=== PATIENT | male | born 1965 | race Hispanic/Latino ===

== ENCOUNTER 2024-10-20 12:34 | Emergency (ER) | payer MEDICAID ==
[~2024-10-20] VITALS: Ht 162.6 cm; Wt 74.4 kg
[~2024-10-20 12:34] MED LIST: AEC81 NG; AMLO10TA4 PO; ATOR40TA69 PO; BUDE10.7 IH; CILO50TA2 PO; CLOP-31 PO; EMPA25TA PO; FURO20TA6 PO; INSU3INS5 SQ; METF-446 PO; METO50TA9 PO; OLME40TA18 PO
--- NOTE | 2024-10-20 12:49 | NUR ---
SELF ADMINISTERED HOME INSULIN-INJECTABLE HOWEVER DID NOT HAVE ANYTHING TO EAT. PER SPOUSE AT BEDSIDE.
--- NOTE | 2024-10-20 12:51 | EKG ---
Formerly [facility] Test Date: 2024-10-20 Test Time: 12:49:26 Pat Name: KATHERYN ROONEY Department: [facility] Room: Gender: M De Alcholizer: [id number] : 1965 Requested By: TERENCE CRUMP Order Number: [id number] Reading MD: Taiwo Fischer Measurements Intervals [place] Rate: 99 P: 46 SC: 156 QRS: 28 QRSD: 131 T: 19 QT: 393 QTc: 504 Interpretive Statements Sinus rhythm Probable left atrial enlargement Right bundle branch block Inferior infarct, old Compared to ECG 09/24/2024 15:26:52 Left anterior fascicular block no longer present Myocardial infarct finding still present Electronically Signed On 10-20-2024 18:40:44 SUPPORT SERVICE TECH by Taiwo Fischer Please click the below link to view image of tracing.
[2024-10-20 13:08] LABS: BASOPHILS # (AUTO) 0.05 K/uL (0.00-0.20); BASOPHILS % (AUTO) 0.3 % (0.0-5.0); EOSINOPHILS # (AUTO) 0.24 K/uL (0.00-0.70); EOSINOPHILS % (AUTO) 1.6 % (0.0-8.0); HEMATOCRIT 33.5 % (42-54); IMMATURE GRANULOCYTE ABSOLUTE 0.08 K/uL (0-1); LYMPHOCYTES # (AUTO) 1.9 K/uL (1.0-4.8); LYMPHOCYTES % (AUTO) 12.5 % (21.0-51.0); MEAN CORPUSCULAR HEMOGLOBIN 30.9 pg (27.0-33.0); MEAN CORPUSCULAR HGB CONC 33.7 g/dL (32.0-36.0); MEAN CORPUSCULAR VOLUME 91.5 fL (79-99); MONOCYTES # (AUTO) 1.2 K/uL (0.1-1.0); MONOCYTES % (AUTO) 7.9 % (3.0-13.0); NEUTROPHILS # (AUTO) 11.7 K/uL (1.8-7.7); NEUTROPHILS % (AUTO) 77.2 % (40.0-77.0); PLATELET COUNT (AUTO) 354 K/uL (130-400); RED BLOOD CELL COUNT(AUTO) 3.66 MIL/uL (4.50-6.20); RED CELL DISTRIBUTION WIDTH 14.2 % (11.0-15.5); WHITE BLOOD COUNT (AUTO) 15.1 K/uL (4.8-10.8)
[2024-10-20 13:15] LABS: POTASSIUM 3.3 mmol/L (3.5-5.1)
[2024-10-20 16:07] LABS: APPEARANCE,URINE CLOUDY (CLEAR); BILIRUBIN,URINE NEGATIVE (NEGATIVE); COLOR,URINE LIGHT-YELLOW (YELLOW); GLUCOSE, URINE (UA) NEGATIVE (NEGATIVE); KETONES,URINE NEGATIVE (NEGATIVE); LEUKOCYTE ESTERASE ,URINE 75 Leu/uL (NEGATIVE); NITRATE,URINE NEGATIVE (NEGATIVE); OCCULT BLOOD,URINE NEGATIVE (NEGATIVE); PH,URINE 5.5 (5.0-8.0); PROTEIN,URINE 200 mg/dL (NEGATIVE); UROBILINOGEN,URINE 0.2 mg/dL (0.2-1.0)
[2024-10-20 16:09] LABS: BACTERIA,URINE MOD /HPF (None Seen); MUCUS,URINE RARE LPF (None Seen); SQUAMOUS EPITHELIAL CELL,UR FEW /HPF (0-2)
[2024-10-20] MEDS: cefTRIAXone 1G VIAL IVPB ONE (16:50)
[2024-10-20] MEDS ORDERED: CEPH500B PO (17:18)
--- NOTE | 2024-10-20 17:18 | ERN ---
General Chief Complaint: Hypoglycemia Stated Complaint: LOW BS 58 Time Seen by MD: 12:41 History of Present Illness Initial Comments 59-year-old male came in for an episode of hypoglycemia. Upon arrival patient states his episode has resolved. Patient otherwise has no concerns. Allergies: Coded Allergies: No Known Drug Allergies (Unverified Allergy, Unknown, 09/18/24) Home Meds Active Scripts Metoprolol Succinate (Toprol Xl) 50 Mg Tab.er.24h, 100 MG PO DAILY, #30 TAB 0 Refills Prov:PAULY STEWART MD 10/01/24 Furosemide (Lasix 20Mg Tab) 20 Mg Tablet, 20 MG PO Q12H, #60 TAB 0 Refills Prov:PAULY STEWART MD 10/01/24 Aspirin (ASPIRIN 81 MG ECTAB) 81 Mg Ectab, 81 MG NG DAILY, #30 TAB.EC 0 Refills Prov:PAULY STEWART MD 10/01/24 Reported Medications Budesonide/Glycopyr/Formoterol (Breztri Aerosphere Inhaler) 160 Mcg-9 Mcg-4.8 Mcg/Actuation Hfa.aer.ad, 2 PUFF IH BID for 30 Days, #10.7 GM 0 Refills 09/19/24 Insuln Asp Prt/Insulin Aspart (Novolog Mix 70-30 Flexpen Syrn) Unknown Strength Insuln.pen, SQ AM PRN for OTHER [SEE ORDER COMMENTS] for 30 Days, #1 SYRINGE 1 Refill 09/19/24 Olmesartan Medoxomil (Olmesartan Medoxomil) 40 Mg Tablet, 40 MG PO DAILY, TAB 09/18/24 Metformin HCl (Metformin HCl) 1,000 Mg Tablet, 1000 MG PO BID, TAB 09/18/24 Amlodipine Besylate (Norvasc) 10 Mg Tablet, 10 MG PO DAILYDINNER, TAB 09/18/24 Clopidogrel Bisulfate (Plavix) 75 Mg Tablet, 75 MG PO DAILY, TAB 09/18/24 Atorvastatin Calcium (LIPITOR) 40 Mg Tablet, 40 MG PO DAILY, TAB 09/18/24 Empagliflozin (Jardiance) 25 Mg Tablet, 25 MG PO DAILY, TAB 09/18/24 Cilostazol (Cilostazol) 50 Mg Tablet, 50 MG PO DAILY, TAB 09/18/24 Past Medical History Past Medical History: CAD, Diabetes-Type II, High Cholesterol Past Surgical History: None ROS Dictation CONSTITUTIONAL: Negative except for HPI HEAD/FACE: Negative except for HPI EENT: Negative except for HPI RESPIRATORY: Negative except for HPI GASTROINTESTINAL/ABDOMINAL: Negative except for HPI GENITOURINARY: Negative except for HPI MUSCULOSKELETAL: Negative except for HPI INTEGUMENTARY: Negative except for HPI NEUROLOGICAL/PSYCH: Negative except for HPI HEMATOLOGIC/LYMPHATIC: Negative except for HPI All Systems Negative, Except as noted above. 13 point review of systems assessed and all negative except for above. Physical Exam Physical Exam Dictation Vital Signs reviewed General Appearance: Alert, oriented x 3, no acute distress, well developed, nourished. Head and Face: non-traumatic. Eyes: PERRL, pink conjunctivas, eyelid no trauma, anterior chamber with arcus senilis. Ears: Pinnas intact and no signs of trauma or erythema ear canals clear and no discharge TM no erythema Nose: No discharge, no bleeding. Oropharynx: Mouth normal, tongue pink, pharynx clear,no erythema, tonsils no exudates, no abscesses noted, mucous membrane moist Neck: Supple, non-tender, no thyromegaly, no masses, no JVD, no bruits Breast:Deferred Chest:No tenderness, no crepitus, no paradoxical movement, no retractions Lungs:Clear, well-ventilated, symmetric, no rales, no wheezing, no rhonchi, no stridor, good breath sounds bilaterally Heart: Regular rate, regular rhythm, no murmur, no gallops Vascular: no peripheral edema, Abdomen: Soft, positive bowel sounds, nondistended, no guarding, nontender, no rebound, no masses no hepatomegaly, no splenomegaly, no Warren's sign, no hernias. Rectal: Deferred Genital: Deferred Neurological: Normal speech, motor function intact, sensory function intact Musculoskeletal: Neck nontender, full range of motion, back nontender, full range of motion, Extremities: nontender, full range of motion Skin: Color pink, dry, no turgor, no rash, no lacerations, no abrasions, no contusions. Lymphatic: Deferred Results Laboratory and Microbiology Lab and Micro Result Laboratory Tests Test 10/20/24 12:41 10/20/24 12:59 10/20/24 13:58 10/20/24 15:29 Whole Blood Glucose 119 MG/DL (70-110) H 125 MG/DL (70-110) H 103 MG/DL (70-110) White Blood Count 15.1 K/uL (4.8-10.8) H Red Blood Count 3.66 MIL/uL (4.50-6.20) L Hemoglobin 11.3 g/dL (14.0-18.0) L Hematocrit 33.5 % (42-54) L Mean Corpuscular Volume 91.5 fL (79-99) Mean Corpuscular Hemoglobin 30.9 pg (27.0-33.0) Mean Corpuscular Hemoglobin Concent 33.7 g/dL (32.0-36.0) Red Cell Distribution Width 14.2 % (11.0-15.5) Platelet Count 354 K/uL (130-400) Mean Platelet Volume 9.3 fL (7.5-10.5) Immature Granulocyte % (Auto) 0.5 % (0-1) Neutrophils (%) (Auto) 77.2 % (40.0-77.0) H Lymphocytes (%) (Auto) 12.5 % (21.0-51.0) L Monocytes (%) (Auto) 7.9 % (3.0-13.0) Eosinophils (%) (Auto) 1.6 % (0.0-8.0) Basophils (%) (Auto) 0.3 % (0.0-5.0) Neutrophils # (Auto) 11.7 K/uL (1.8-7.7) H Lymphocytes # (Auto) 1.9 K/uL (1.0-4.8) Monocytes # (Auto) 1.2 K/uL (0.1-1.0) H Eosinophils # (Auto) 0.24 K/uL (0.00-0.70) Basophils # (Auto) 0.05 K/uL (0.00-0.20) Absolute Immature Granulocyte (auto 0.08 K/uL (0-1) Nucleated Red Blood Cells 0.0 % (0.0-0.19) Sodium Level 145 mmol/L (136-145) Potassium Level 3.3 mmol/L (3.5-5.1) L Chloride Level 106 mmol/L (101-111) Carbon Dioxide Level 26 mmol/L (21-32) Blood Urea Nitrogen 11 mg/dL (7-18) Creatinine 1.0 mg/dL (0.5-1.3) Glomerular Filtration Rate Calc 86 mL/min (>90) Random Glucose 118 mg/dL (70-105) H Total Calcium 9.0 mg/dL (8.5-10.1) Troponin I High Sensitivity 38 ng/L (4-75) Test 10/20/24 15:52 Urine Color LIGHT-YELLOW (YELLOW) Urine Appearance CLOUDY (CLEAR) H Urine pH 5.5 (5.0-8.0) Urine Specific [place] 1.015 (1.001-1.031) Urine Protein 200 mg/dL (NEGATIVE) H Urine Glucose (UA) NEGATIVE mg/dL (NEGATIVE) Urine Ketones NEGATIVE mg/dL (NEGATIVE) Urine Occult Blood NEGATIVE (NEGATIVE) Urine Nitrate NEGATIVE (NEGATIVE) Urine Bilirubin NEGATIVE mg/dL (NEGATIVE) Urine Urobilinogen 0.2 mg/dL (0.2-1.0) Urine Leukocyte Esterase 75 Anil/uL (NEGATIVE) H Urine RBC 2-5 /HPF (0-1) H Urine WBC 6-10 /HPF (0-1) H Urine Squamous Epithelial Cells FEW /HPF (0-2) Urine Bacteria MOD /HPF (None Seen) Urine Hyaline Casts 2-5 /LPF (0-1 /LPF) H MDM MDM: Differential diagnosis: There are no social concerns with this patient. Prescription drug management Prescriptions will include: Medical management and examination interpretation discussions were had by me with other qualified healthcare professionals as indicated for the patient's care. ED Course Orders Procedure Category Date Status Time Basic Metabolic Panel LAB 10/20/24 Complete 12:41 Troponin I High LAB 10/20/24 Complete Sensitivity 12:41 Urinalysis LAB 10/20/24 Complete W/Microscopic 12:41 12 Lead Ekg Tracing- EKG 10/20/24 Complete Technical 12:41 Cbc With Differential LAB 10/20/24 Complete 12:41 Heart Healthy Diet DIET 10/20/24 Transmitted Lunch Culture Urine MICHELLE 10/20/24 In Process 16:07 Ceftriaxone 1g Vial PHA 10/20/24 Complete (Rocephine 1g Inj) 17:00 Current Medications Medications (Trade) Dose Ordered Sig/Janeth Route PRN Reason Start Time Stop Time Status Last Admin Dose Admin Ceftriaxone Sodium (ROCEphine 1G INJ) 1 gm ONCE ONCE IVPB 10/20/24 17:00 10/20/24 17:01 DC 10/20/24 16:50 Vital Signs Date Time Temp Pulse Resp B/P (MAP) Pulse Ox O2 Delivery O2 Flow Rate FiO2 10/20/24 16:10 103 18 136/61 100 Room Air* 0 21 10/20/24 14:42 105 16 132/63 98 Room Air* 0 21 10/20/24 12:52 98 16 128/60 96 Room Air* 0 21 DX & DISP Disposition: Discharge Departure Impression: Primary Impression: Hypoglycemia Additional Impression: UTI (urinary tract infection) Condition: Stable Scripts Cephalexin Monohydrate (Keflex) 500 Mg Cap 500 MG PO BID for 7 Days, #14 CAP Prov: TERENCE CRUMP MD 10/20/24 Referrals: DAVID BURDICK MD (PCP) TERENCE CRUMP MD Oct 20, 2024 17:18
[2024-10-20 17:33] VITALS: BP 144/79; PULSE 100; RESP 16; TEMP 98.1; O2SAT 99
== END 2024-10-20 17:34 | disposition home or self-care (01) ==
LOC: EDH 12:34
DX: E11.649 Type 2 diabetes mellitus with hypoglycemia without coma (principal); N39.0 Urinary tract infection, site not specified; E78.00 Pure hypercholesterolemia, unspecified; I25.10 Atherosclerotic heart disease of native coronary artery without angina pectoris; Z79.02 Long term (current) use of antithrombotics/antiplatelets; Z79.82 Long term (current) use of aspirin; Z79.84 Long term (current) use of oral hypoglycemic drugs; Z79.899 Other long term (current) drug therapy
CPT/HCPCS: 99284; 96374; 84484; 80048; 85025; 87086 ×2; 87186; 82948 ×3; 81001; 36415; 93005; J0696

== ENCOUNTER 2024-11-09 22:43 | Inpatient (IN) | payer MEDICAID ==
[~2024-11-09] VITALS: Ht 162.6 cm; Wt 77.5 kg
[~2024-11-09 22:43] MED LIST changes: +CEPH500B PO
--- NOTE | 2024-11-09 22:52 | ERN ---
General Chief Complaint: Shortness of Breath Stated Complaint: SHORTNESS OF BREATH Time Seen by MD: 22:45 History of Present Illness Initial Comments 59M, BIB EMS from home for resp distress x 48 hours. Patient has a history of COPD, he uses Advair twice a day and albuterol nebulizer regularly. He has been doing this for the last couple of days. He reports a sore throat and productive cough without fever. He reports he had increased respiratory distress. He reports some mild pedal edema. No PND or orthopnea. No chest pain. EMS reports patient had an oxygen saturation ranging from 88-90% on room air. He received a DuoNeb by EMS, on arrival here he reports improvement of symptoms and he is satting at 99%. PCP: Beny Burdick Tapping Machine Operator: Albert Tours Captain: Jesus Manuel Khanna Allergies: Coded Allergies: No Known Drug Allergies (Unverified Allergy, Unknown, 09/18/24) Home Meds Active Scripts Cephalexin Monohydrate (Keflex) 500 Mg Cap, 500 MG PO BID for 7 Days, #14 CAP Prov:TERENCE CRUMP MD 10/20/24 Metoprolol Succinate (Toprol Xl) 50 Mg Tab.er.24h, 100 MG PO DAILY, #30 TAB 0 Refills Prov:PAULY STEWART MD 10/01/24 Furosemide (Lasix 20Mg Tab) 20 Mg Tablet, 20 MG PO Q12H, #60 TAB 0 Refills Prov:PAULY STEWART MD 10/01/24 Aspirin (ASPIRIN 81 MG ECTAB) 81 Mg Ectab, 81 MG NG DAILY, #30 TAB.EC 0 Refills Prov:PAULY TSEWART MD 10/01/24 Reported Medications Budesonide/Glycopyr/Formoterol (Breztri Aerosphere Inhaler) 160 Mcg-9 Mcg-4.8 Mcg/Actuation Hfa.aer.ad, 2 PUFF IH BID for 30 Days, #10.7 GM 0 Refills 09/19/24 Insuln Asp Prt/Insulin Aspart (Novolog Mix 70-30 Flexpen Syrn) Unknown Strength Insuln.pen, SQ AM PRN for OTHER [SEE ORDER COMMENTS] for 30 Days, #1 SYRINGE 1 Refill 09/19/24 Olmesartan Medoxomil (Olmesartan Medoxomil) 40 Mg Tablet, 40 MG PO DAILY, TAB 09/18/24 Metformin HCl (Metformin HCl) 1,000 Mg Tablet, 1000 MG PO BID, TAB 09/18/24 Amlodipine Besylate (Norvasc) 10 Mg Tablet, 10 MG PO DAILYDINNER, TAB 09/18/24 Clopidogrel Bisulfate (Plavix) 75 Mg Tablet, 75 MG PO DAILY, TAB 09/18/24 Atorvastatin Calcium (LIPITOR) 40 Mg Tablet, 40 MG PO DAILY, TAB 09/18/24 Empagliflozin (Jardiance) 25 Mg Tablet, 25 MG PO DAILY, TAB 09/18/24 Cilostazol (Cilostazol) 50 Mg Tablet, 50 MG PO DAILY, TAB 09/18/24 Past Medical History Past Medical History: CAD, COPD, Diabetes-Type II, High Cholesterol, Hy pertension Past Surgical History: None ROS Dictation CONSTITUTIONAL: No chills, no fever, no weakness, no diaphoresis, no malaise. HEAD/FACE: No signs of trauma. EENT: No eye pain, no blurred vision, no tearing, no double vision, no ear pain, no ear discharge, no nose pain, no nasal congestion, no throat pain, no throat swelling, no mouth pain. RESPIRATORY: Productive cough, respiratory distress, wheezing. CARDIOVASCULAR: No chest pain, no edema, no palpitations, no syncope. GASTROINTESTINAL/ABDOMINAL: No abdominal pain, no constipation, no diarrhea, no nausea, no vomiting. GENITOURINARY: No abnormal discharge, no dysuria, no frequent urination, no hematuria. No complaints of pain in the genitals. MUSCULOSKELETAL: No back pain, no gout, no joint pain, no joint swelling, no muscle pain, no muscle stiffness, no neck pain. INTEGUMENTARY: No change in color, no change in hair/nails, no dryness, no lesion, no lumps, no rash. NEUROLOGICAL/PSYCH: No anxiety, not depressed, no emotional problem, no headache, no numbness, no pre-existing deficit, no history of seizures, no tremors, no weakness. HEMATOLOGIC/LYMPHATIC: Not anemic, no history of blood clots, no apparent bleeding, no bruising, glands not swollen. All Systems Negative, Except as Noted. Physical Exam Physical Exam Dictation VITAL SIGNS: Reviewed. GENERAL APPEARANCE: Alert, oriented x3, no acute distress HEAD AND FACE: Non-traumatic. EYES: PERRL, pink conjunctivas, eyelid no trauma, anterior chamber clear. EARS: Pinnas intact and no signs of trauma or erythema. Ear canals clear and no discharge. TMs no erythema. NOSE: No discharge, no bleeding. OROPHARYNX: Mouth normal, teeth no caries, tongue pink. Pharynx clear, no erythema. Tonsils no exudates, no abscesses noted. Mucous membrane moist. NECK: Supple, non-tender, no thyromegaly, no masses, no JVD, no bruits. BREAST: Deferred. CHEST: No tenderness, no crepitus, no paradoxical movement, no retractions. LUNGS: Mild expiratory wheezes, mild rhonchus/rales in the bases bilaterally, 1+ pitting edema to lower legs. ENT exam normal. HEART: Regular rate, regular rhythm, no murmur, no gallops. VASCULAR: No peripheral edema. ABDOMEN: Soft, positive bowel sounds, nondistended, no guarding, nontender, no rebound, no masses no hepatomegaly, no splenomegaly, no Warren's sign, no h ernias. RECTAL: Deferred. GENITAL: Deferred. NEUROLOGICAL: Normal speech, gross motor function intact, gross sensory functi on intact. MUSCULOSKELETAL: Neck nontender, full range of motion, back nontender, full range of motion. EXTREMITIES: Nontender, full range of motion. SKIN: Color pink, dry, no turgor, no rash, no lacerations, no abrasions, no contusions. LYMPHATICS: Deferred. Results Laboratory and Microbiology Lab and Micro Result Laboratory Tests Test 11/09/24 22:54 11/09/24 23:14 11/09/24 23:24 White Blood Count 17.0 K/uL (4.8-10.8) H Red Blood Count 3.86 MIL/uL (4.50-6.20) L Hemoglobin 11.2 g/dL (14.0-18.0) L Hematocrit 34.8 % (42-54) L Mean Corpuscular Volume 90.2 fL (79-99) Mean Corpuscular Hemoglobin 29.0 pg (27.0-33.0) Mean Corpuscular Hemoglobin Concent 32.2 g/dL (32.0-36.0) Red Cell Distribution Width 15.4 % (11.0-15.5) Platelet Count 431 K/uL (130-400) H Mean Platelet Volume 9.2 fL (7.5-10.5) Immature Granulocyte % (Auto) 0.4 % (0-1) Neutrophils (%) (Auto) 78.1 % (40.0-77.0) H Lymphocytes (%) (Auto) 13.2 % (21.0-51.0) L Monocytes (%) (Auto) 6.7 % (3.0-13.0) Eosinophils (%) (Auto) 1.2 % (0.0-8.0) Basophils (%) (Auto) 0.4 % (0.0-5.0) Neutrophils # (Auto) 13.3 K/uL (1.8-7.7) H Lymphocytes # (Auto) 2.3 K/uL (1.0-4.8) Monocytes # (Auto) 1.1 K/uL (0.1-1.0) H Eosinophils # (Auto) 0.20 K/uL (0.00-0.70) Basophils # (Auto) 0.07 K/uL (0.00-0.20) Absolute Immature Granulocyte (auto 0.07 K/uL (0-1) Nucleated Red Blood Cells 0.0 % (0.0-0.19) Sodium Level 142 mmol/L (136-145) Potassium Level 3.0 mmol/L (3.5-5.1) *L Chloride Level 104 mmol/L (101-111) Carbon Dioxide Level 30 mmol/L (21-32) Blood Urea Nitrogen 10 mg/dL (7-18) Creatinine 0.9 mg/dL (0.5-1.3) Glomerular Filtration Rate Calc 97 mL/min (>90) Random Glucose 229 mg/dL (70-105) H Total Calcium 8.8 mg/dL (8.5-10.1) Total Creatine Kinase 201 U/L (21-232) Troponin I High Sensitivity 55.3 ng/L (4-75) B-Type Natriuretic Peptide 1590 pg/mL (0-100) H Influenza Type A Antigen Negative For Type A Influenza Type B Antigen Negative For Type B SARS-CoV-2 Antigen (Rapid) PRESUMPTIVE NEGATIVE Blood Gas Specimen Type Arterial Arterial Blood pH 7.472 (7.350-7.450) Arterial Blood Partial Pressure CO2 33 mmHg (35-48) L Arterial Blood Partial Pressure O2 55.0 mmHg (83.0-108.0) Arterial Blood HCO3 23.7 mmol/L (21.0-28.0) Arterial Blood Oxygen Saturation 90.8 % (94.0-98.0) L Arterial Blood Base Excess 0.8 mmol/L (-2.0-3.0) Blood Gas Temperature 37.0 CELSIUS (35.5-37.0) Blood Gas Vent Mode RA (ROOM AIR) FiO2 21.0 % Blood Gas Specimen Comment RR RN MDM CC: dyspnea x 48 Historian: patient Comorbidities: recent CABG, COPD, oxygen dependency (2L home O2), CAD, HTN Limitations by social determinates of health: none Differential diagnosis: COPD exacerbation, fluid overload, resp failure, PNA, flu, etc. Complicated medical patient with life threatening presentation. CXR (independently interpreted by me): moderate congestion, no effusion or focal infiltrates Labs (independently ordered & intrepreted by me): leukocytosis 17k, L shift, mild anemia Hg 11.2, otherwise stable. Chemistry shows hypokalemia potassium of three, replaced orally in the ER. Glucose mildly elevated to 29. BNP elevated 15 90. I reviewed previous labs in his numbers usually lower. Troponin is stable on CK is stable. ABG: hypoxic PaO2 55%, otherise stable. Patient placed on 4 L of oxygen nasal cannula. EKG (independently interpreted by me): NSR rate 99, normal axis, good RWP, RBBB morphology, no ischemia or STEMI per my independent interpretation. Treatment in ED: 5mg albuterol, 500mcg atrovent, azithromycin, IV lasix. Patient appears to be fluid overloaded based on the BNP, chest x-ray, and clini hannah exam. Patient normally uses 2 L of oxygen at home, now requires 4 L of oxygen. We will admit for fluid overload pulmonary edema. Patient also was wheezing and would benefit from neb treatments. Patient agrees to the admission. Hospitalist consulted for admission. ED Course Orders Procedure Category Date Status Time Arterial Blood Gas RT 11/09/24 Transmitted 22:47 Cbc With Differential LAB 11/09/24 Complete 22:47 B-Type Natriuretic LAB 11/09/24 Complete Peptide 22:47 Cardiac Panel LAB 11/09/24 Complete 22:47 Chest 1vw RAD 11/09/24 Taken 22:47 12 Lead Ekg Tracing- EKG 11/09/24 Logged Technical 22:47 Albuterol 0.083% PHA 11/09/24 Complete 2.5mg/3ml (Proventil 23:00 Ipratropium 0.5 PHA 11/09/24 Complete Mg/2.5 Ml Inh 23:00 Methylprednisolone PHA 11/09/24 Complete Succ 125mg (Solu-Medr 23:00 Basic Metabolic Panel LAB 11/09/24 Complete 22:47 Covid19 (Sars Antigen LAB 11/09/24 Complete Rapid) 22:47 Influenza Type A & B, LAB 11/09/24 Complete Rapid 22:47 Arterial Blood Gas LAB 11/09/24 Complete 23:24 Furosemide 40mg Vial PHA 11/09/24 Complete (Lasix 40mg Vial) 23:30 Azithromycin PHA 11/10/24 Complete (Zithromax) 00:00 Initiate Po ARIANNE 11/10/24 In Process Hypokalemia Protoc 00:02 Potassium Chloride PHA 11/10/24 Logged 20meq/100ml ([place] 00:30 Potassium Chl 10% PHA 11/10/24 Logged Elixir 20meq (Kcl 10% 00:30 Potassium Chloride PHA 11/10/24 Logged 20meq Er (K-Dur/Klor- 00:30 Notify Physician If CPOE 11/10/24 Transmitted There Is 00:02 Notify Md On The Next CPOE 11/10/24 Transmitted 00:02 Notify Md On The CPOE 11/10/24 Transmitted Next(Cont.) 00:02 Current Medications Medications (Trade) Dose Ordered Sig/Janeth Route PRN Reason Start Time Stop Time Status Last Admin Dose Admin Albuterol Sulfate (Proventil 0.083% 2.5mg/3ml) 5 mg ONCE ONCE IH 11/09/24 23:00 11/09/24 23:01 DC 11/09/24 23:19 Azithromycin (Zithromax) 500 mg ONCE ONCE PO 11/10/24 00:00 11/10/24 00:01 DC Furosemide (LASix 40MG VIAL) 40 mg ONCE ONCE IV 11/09/24 23:30 11/09/24 23:31 DC 11/09/24 23:49 Ipratropium [place] (AtrovENT UD) 0.5 mg ONCE ONCE IH 11/09/24 23:00 11/09/24 23:01 DC 11/09/24 23:19 Methylprednisolone Sodium Succinate (Solu-medROL 125MG) 125 mg ONCE ONCE IVP 11/09/24 23:00 11/09/24 23:01 DC 11/09/24 23:13 Potassium Chloride 100 ml @ 100 mls/hr AD PRN IV POTASSIUM PROTOCOL 11/10/24 00:30 12/10/24 00:29 UNV Potassium Chloride (K-Dur/Klor-Con 20meq) 20 meq AD PRN PO POTASSIUM PROTOCOL 11/10/24 00:30 12/10/24 00:29 UNV Potassium Chloride (KCl 10% Elixir 20meq/15ml) 20 meq AD PRN PO POTASSIUM PROTOCOL 11/10/24 00:30 12/10/24 00:29 UNV Vital Signs Date Time Temp Pulse Resp B/P (MAP) Pulse Ox O2 Delivery O2 Flow Rate FiO2 11/09/24 23:27 100 16 11/09/24 22:45 98.4 110 16 152/76 99 Aerosol Face Mask 6.0 DX & DISP Disposition: Inpatient Departure Impression: Primary Impression: Respiratory failure with hypoxia Additional Impressions: Pulmonary edema, Wheezing, Hypokalemia, Hyperglycemia Critical Time: 30 minutes (Critical Care Procedure NoteAuthorized and Performed by: meTotal critical care time: Approximately 36 minutesDue to a high probabi lity of clinically significant, life threatening deterioration, the patient required my highest level of preparedness to intervene emergently and I personally spent this critical care time directly and personally managing the patient. This critical care time included obtaining a history; examining the patient; pulse oximetry; ordering and review of studies; arranging urgent treatment with development of a management plan; evaluation of patient's response to treatment; frequent reassessment; and, discussions with other providers.This critical care time was performed to assess and manage the high probability of imminent, life-threatening deterioration that could result in multi-organ failure. It was exclusive of separately billable procedures and treating other patients and teaching time.Please see MDM section and the rest of the note for further information on patient assessment and treatment.) Condition: Stable Referrals: BENY BURDICK MD (PCP) DARRIAN SAMSON DO Nov 09, 2024 22:52
[2024-11-09 23:05] LABS: BASOPHILS # (AUTO) 0.07 K/uL (0.00-0.20); BASOPHILS % (AUTO) 0.4 % (0.0-5.0); EOSINOPHILS % (AUTO) 1.2 % (0.0-8.0); HEMATOCRIT 34.8 % (42-54); IMMATURE GRANULOCYTE ABSOLUTE 0.07 K/uL (0-1); LYMPHOCYTES # (AUTO) 2.3 K/uL (1.0-4.8); LYMPHOCYTES % (AUTO) 13.2 % (21.0-51.0); MEAN CORPUSCULAR HGB CONC 32.2 g/dL (32.0-36.0); MEAN CORPUSCULAR VOLUME 90.2 fL (79-99); MONOCYTES # (AUTO) 1.1 K/uL (0.1-1.0); MONOCYTES % (AUTO) 6.7 % (3.0-13.0); NEUTROPHILS # (AUTO) 13.3 K/uL (1.8-7.7); NEUTROPHILS % (AUTO) 78.1 % (40.0-77.0); PLATELET COUNT (AUTO) 431 K/uL (130-400); RED BLOOD CELL COUNT(AUTO) 3.86 MIL/uL (4.50-6.20); RED CELL DISTRIBUTION WIDTH 15.4 % (11.0-15.5)
[2024-11-09] MEDS: Solu-medROL 125MG VIAL IVP ONE (23:13)
[2024-11-09] MEDS: ALBUTEROL 0.083% 2.5 MG/3 ML INH IH ONE (23:19)
[2024-11-09] MEDS: IpraTROPium 0.5 MG/2.5 ML INH IH ONE (23:19)
[2024-11-09 23:21] LABS: CREATININE 0.9 mg/dL (0.5-1.3)
[2024-11-09 23:26] LABS: ABG BASE EXCESS 0.8 mmol/L (-2.0-3.0); ABG HCO3 23.7 mmol/L (21.0-28.0); ABG OXYGEN SATURATION 90.8 % (94.0-98.0); ABG PCO2 33 mmHg (35-48); ABG PH 7.472 (7.350-7.450); DEVICE COMMENT RR RN; VENT MODE, BG RA (ROOM AIR)
[2024-11-09 23:27] VITALS: PULSE 100; RESP 16
[2024-11-09 23:37] LABS: B-TYPE NATRIURETIC PEPTIDE 1590 pg/mL (0-100)
[2024-11-09] MEDS: furoSEMIDE 40MG VIAL IV ONE (23:49)
[2024-11-10] VITALS (10 sets, daily range): BP systolic 121–151; BP diastolic 69–81; PULSE 86–102; RESP 18; TEMP 97.9–98.4; O2SAT 97–100
[2024-11-10] LABS: COVID19 (SARS ANTIGEN RAPID) PRESUMPTIVE NEGATIVE (NEGATIVE); INFLUENZA TYPE A Negative For Type A (NEGATIVE); INFLUENZA TYPE B Negative For Type B (NEGATIVE)
[2024-11-10] MEDS: AZITHROMYCIN 250 MG TABLET PO ONE (00:15)
[2024-11-10] MEDS: PoTASSium chloRIDE 20MEQ ER 20 MEQ ERTAB PO PRN (00:15)
[2024-11-10] MEDS: PoTASSium chloRIDE 20MEQ/100ML 100 ML IV PRN (00:16)
--- NOTE | 2024-11-10 00:29 | HP ---
History of Present Illness Reason for Visit: sob History of Present Illness Mr. Rooney is a 59-year-old male that was seen and examined today on 11/10/2024. Patient is a good historian if personal health. Patient's Sheila Rooney is at bedside. Patient states that he came to the emergency department with a chief complaint of shortness a breath. Onset was two days ago. Locations to lungs. Duration is on and off. Character is described as, quotation difficulty catching breath. Symptoms are aggravated with physical activity laying supine. Symptoms are al leviated with rest. Patient reports associated bilateral lower extremity pitting edema because his doctor decreased his water pills. Today in the emergency department ABG shows PO2 55, labs show potassium 3.0, glucose 229 mg/dL, chest x-ray is pending radiology interpretation. Emergency room physician recommended the patient be admitted with a diagnosis of heart failure exacerbation. Past Medical History Patient History: Carcinomas SISTER, Name: SHY (CURRENTLY ON DIALYSIS), Age: 59, Not a twin, Onset:50's - 60 SISTER, Name: WAQAS (JUST DIAGNOSE WITH BREAST CANCER), Age: 45, Not a twin, Onset:40's - 50 Cardiovascular disease SISTER, Name: CHARLES (CABG 2021), Age: 55, Not a twin, Onset:50's - 60 Diabetes mellitus FATHER, Name: ANEL ROONEY, , Age: 58, Cause: Past heart attack, Not a twin, Onset:25's - 30 BROTHER, Name: RALF, Age: 57, Not a twin, Onset:30's - 40 SISTER, Name: SHY (CURRENTLY ON DIALYSIS), Age: 59, Not a twin, Onset:30's - 40 SISTER, Name: CHARLES (CABG 2021), Age: 55, Not a twin, Onset:25's - 30 SISTER, Name: LUKE, Age: 56, Not a twin, Onset:40's - 50 SISTER, Name: WAQAS (JUST DIAGNOSE WITH BREAST CANCER), Age: 45, Not a twin, Onset:40's - 50 Hypertension MOTHER, Name: ZENON ROONEY, Born [birth year]/39, Age: 85, Not a twin, Onset:60 years & older ADDITIONAL PAST MEDICAL HISTORY: [COPD, systolic heart failure with LVEF 30-35% by 2D echo on 09/18/2024, hypertension, hyperlipidemia, diabetes mellitus type 2 ] SOCIAL HISTORY: [Patient has smoked one pack of cigarettes daily since the age of 14 and quit smoking in September of 2024, patient consumes alcohol about once a month usually six beers at a 12 oz each, patient denies drug use. Patient lives with his . Patient is typically independent was ADLs. Patient denies difficulty pain is bowels. Patient has good access to health care through his insurance. Patient states he is disabled. SURGICAL HISTORY: [CABG, bilateral eye surgery] Review of Systems General: No Fever, No Chills, No Night Sweats, No Fatigue, No Malaise, No Appetite, No Other HEENT: No Head Aches, No Visual Changes, No Eye Pain, No Ear Pain, No Dysphasia, No Sinus Congestion, No Post Nasal Drip, No Sore Throat, No Other Pulmonary: Dyspnea; No Cough, No Pleuritic Chest Pain, No Other Cardiovascular: Orthopnea; No: Chest Pain, Palpitations, Paroxysmal Noc. Dyspnea, Edema, Lt Headedness, Other Gastrointestinal: No: Nausea, Vomiting, Abdominal Pain, Diarrhea, Constipation, Melena, Hematochezia, Other Genitourinary: No Dysuria, No Frequency, No Incontinence, No Hematuria, No Retention, No Other Musculoskeletal: No: other, neck pain, shoulder pain, arm pain, back pain, hand pain, leg pain, foot pain Skin: No Urticaria, No Rash, No Other Neurological: No: Weakness, Numbness, Incoordination, Change in speech, Confusion, Seizures, Other Allergies: Coded Allergies: No Known Drug Allergies (Unverified Allergy, Unknown, 09/18/24) Scheduled Amlodipine Besylate (Norvasc), 10 MG PO DAILYDINNER, (Reported) Aspirin (Aspirin 81 Mg Ectab), 81 MG NG DAILY Atorvastatin Calcium (Lipitor), 40 MG PO DAILY, (Reported) Budesonide/Glycopyr/Formoterol (Breztri Aerosphere Inhaler), 2 PUFF IH BID, (Reported) Cephalexin Monohydrate (Keflex), 500 MG PO BID Cilostazol (Cilostazol), 50 MG PO DAILY, (Reported) Clopidogrel Bisulfate (Plavix), 75 MG PO DAILY, (Reported) Empagliflozin (Jardiance), 25 MG PO DAILY, (Reported) Furosemide (Lasix 20Mg Tab), 20 MG PO Q12H Insuln Asp Prt/Insulin Aspart (Novolog Mix 70-30 Flexpen Syrn), 25 UNITS SQ BID, (Reported) Metformin HCl (Metformin HCl), 1,000 MG PO BID, (Reported) Metoprolol Succinate (Toprol Xl), 100 MG PO DAILY Olmesartan Medoxomil (Olmesartan Medoxomil), 40 MG PO DAILY, (Reported) Sacubitril/Valsartan (Entresto 97 mg-103 mg Tablet), 1 TAB PO BID, (Reported) Scheduled PRN Insuln Asp Prt/Insulin Aspart (Novolog Mix 70-30 Flexpen Syrn), Unknown Dose SQ AM PRN for OTHER [SEE ORDER COMMENTS], (Reported) Exam Vital Signs Vital Signs Date Time Temp Pulse Resp B/P (MAP) Pulse Ox O2 Delivery O2 Flow Rate FiO2 11/09/24 23:27 100 16 11/09/24 22:45 98.4 152/76 99 Aerosol Face Mask 6.0 General Appearance: Alert, Oriented X3, Cooperative, No acute distress HEENT: Atraumatic, EOMI Respiratory: Clear to auscultation, Normal air movement, NL respiratory effort Cardiovascular: Regular rate, Regular rhythm, Normal S1, Normal S2, Other (S3) Abdominal: Normal bowel sounds, Soft, No tenderness Extremities: Other (Plus two. Edema of the bilateral lower extremities) Skin: No rashes, No breakdown, No significant lesion Neuro: Normal speech, Strength at 5/5 X4 ext, Sensation intact, Cranial nerves 3-12 NL Psych/Mental Status: Mental status NL, Mood NL, Thoughts/Content NL Assessment/Plan ASSESSMENT: [ Acute on chronic systolic heart failure exacerbation with LVEF 30-35% by 2D echo on 09/18/2024, POA Acute hypoxemic respiratory failure, POA Hypokalemia, POA Uncontrolled diabetes mellitus type 2., POA COPD Hypertension Hyperlipidemia] PLAN: [ Admit patient to PCCU is inpatient status. Place patient on telemetry monitoring. Conservative diuresis with Lasix 20 mg IV twice daily once patient has potassium levels within normal limits Monitor intake and output every shift Weight patient daily 1500 mL daily fluid restriction As needed BiPAP 10/5, rate 16, FiO2 60% Keep patient NPO while on BiPAP DuoNebs every 6 hours Patient received [id number] mg IV x1 dose in the ER Continue Solu-Medrol 40 mg IV every 8 hours Supplemental oxygen to maintain O2 saturation greater than 92% Replace potassium per hospital protocol Check glucometer a.c. HS One thousand eight hundred ADA diet was patient is no longer NPO and no longer short of breath Check hemoglobin A1c in a.m. Humira DNR sliding scale one/to dose Pulmicort twice daily Consider resuming home medications once reconciled For now, hydralazine 10 mg IV every 4 hours as needed for systolic blood pressure greater than 160 mmHg GI prophylaxis, famotidine 20 mg by mouth once daily. DVT prophylaxis, Lovenox 40 mg subcutaneously once daily. ADVANCED CARE PLANNING 1. Which of the following were discussed? Hospice Care - Yes Therapeutic options - Yes Advance Directives - Yes- patient does not have any advance directives in place at this time, however his can make decisions for him if he becomes unable. Other discussions - patient wishes to remain a full code at this time 2. Discussed with who? patient 3. Voluntary nature of this service was explained to the patient? Yes 4. Amount of time spent - _ 16 minutes 5. Reviewed by Physician? (if this service was performed by NPP) Yes ADDENDUM: ATTENDING PHYSICIAN ATTESTATION: I have seen and discussed this patient with the midlevel and I agree with their plan. See my addendum for updates to the medical plan MD GUS Arora [facility] Nov 10, 2024 00:29 PAULY STEWART MD Nov 10, 2024 16:29
[2024-11-10] MEDS ORDERED: PoTASSium chloRIDE 20MEQ ER 20 MEQ ERTAB PO PRN (00:30)
[2024-11-10] MEDS ORDERED: PoTASSium chloRIDE 20MEQ/100ML 100 ML IV PRN (00:30)
[2024-11-10] MEDS ORDERED: PoTASSium chl 10% ELIXIR 20MEQ 20 MEQ/15 ML UDCUP PO PRN ×2 (00:30)
--- NOTE | 2024-11-10 03:08 | NUR ---
Jim wiley in [facility] - 11/10/24 at 0310 by [email or web address] EMS HERE TO TRANSPORT PATIENT TO [facility]
[2024-11-10] MEDS ORDERED: SACU1TAB4 PO (05:40)
[2024-11-10] MEDS ORDERED: INSU3INS5 SQ (05:46)
[2024-11-10 06:53] LABS: BASOPHILS # (AUTO) 0.03 K/uL (0.00-0.20); BASOPHILS % (AUTO) 0.2 % (0.0-5.0); HEMATOCRIT 32.9 % (42-54); HEMOGLOBIN A1C 6.7 % (4.0-6.0); IMMATURE GRANULOCYTE ABSOLUTE 0.04 K/uL (0-1); LYMPHOCYTES # (AUTO) 0.8 K/uL (1.0-4.8); LYMPHOCYTES % (AUTO) 6.4 % (21.0-51.0); MEAN CORPUSCULAR HEMOGLOBIN 29.5 pg (27.0-33.0); MEAN CORPUSCULAR HGB CONC 33.1 g/dL (32.0-36.0); MEAN CORPUSCULAR VOLUME 89.2 fL (79-99); MONOCYTES # (AUTO) 0.1 K/uL (0.1-1.0); MONOCYTES % (AUTO) 0.7 % (3.0-13.0); NEUTROPHILS # (AUTO) 11.2 K/uL (1.8-7.7); NEUTROPHILS % (AUTO) 92.4 % (40.0-77.0); PLATELET COUNT (AUTO) 421 K/uL (130-400); RED BLOOD CELL COUNT(AUTO) 3.69 MIL/uL (4.50-6.20); RED CELL DISTRIBUTION WIDTH 15.1 % (11.0-15.5); WHITE BLOOD COUNT (AUTO) 12.1 K/uL (4.8-10.8)
[2024-11-10 07:02] LABS: CREATININE 0.9 mg/dL (0.5-1.3); MAGNESIUM 1.8 mg/dL (1.80-2.40); PHOSPHORUS 3.2 mg/dL (2.5-4.9); POTASSIUM 3.7 mmol/L (3.5-5.1)
[2024-11-10] MEDS: Solu-medROL 40MG VIAL IVP SCH (07:03)
--- NOTE | 2024-11-10 07:07 | EKG ---
[facility] Test Date: 2024-11-09 Test Time: 23:12:38 Pat Name: KATHERYN ROONEY Department: [facility]IP Room: 230 Gender: M Colorist Photography: [id number] [phone] [id number] Requested By: DARRIAN SAMSON Order Number: [id number] Reading MD: Mian Vann Measurements Intervals [place] Rate: 99 P: 60 [place]: 143 QRS: 60 QRSD: 141 T: 32 QT: 415 QTc: 530 Interpretive Statements Sinus rhythm Atrial premature complex Probable left atrial enlargement Right bundle branch block Inferior infarct, old Compared to ECG 10/20/2024 12:49:26 Atrial premature complex(es) now present Myocardial infarct finding still present Electronically Signed On 11-11-2024 10:28:55 ENTRY LEVEL ACCOUNT EXECUTIVE by Mian Vann Please click the below link to view image of tracing.
[2024-11-10] MEDS: INSULIN humuLIN R 100 UNIT/ML 3ML SQ SCH (07:26)
[2024-11-10] MEDS: IpraTROPium/alBUTERol SULFATE 3 ML SOLUTION IH SCH (07:28)
[2024-11-10] MEDS: furoSEMIDE 20MG VIAL IV SCH (08:18)
[2024-11-10] MEDS ORDERED: SACUBITRIL/VALSARTAN 1 EACH TABLET PO SCH (09:00)
[2024-11-10] MEDS ORDERED: NON-FORMULARY MEDICATION 1 EACH (Cilostazol 50 MG) PO SCH (09:00)
[2024-11-10] MEDS: SACUBITRIL/VALSARTAN 1 EACH TABLET PO SCH (09:24)
[2024-11-10] MEDS: cloPIDOgrel 75MG TAB PO SCH (09:25)
[2024-11-10] MEDS: furoSEMIDE 40MG VIAL IV SCH (09:25)
[2024-11-10] MEDS: metOPROLol sucCINATE 50 MG TAB.SR.24H PO SCH (09:25)
[2024-11-10] MEDS: atorVAStatin 40 MG TABLET PO SCH (09:25)
[2024-11-10] MEDS: ASPIRIN 81 MG EC TAB NG SCH (09:25)
--- NOTE | 2024-11-10 11:15 | HMCIMG ---
PORTABLE CHEST RADIOGRAPH INDICATION: Dyspnea/SOB COMPARISON: 09/29/2024 FINDINGS: media monitor leads overlie the field of view. Median sternotomy wires as well as fixation plates and screws are in appropriate alignment. Heart is slightly enlarged. Pulmonary vascularity is enlarged. No abnormal pulmonary parenchymal opacity or consolidation identified. No significant pleural effusion noted. No pneumothorax detected. IMPRESSION: Pulmonary vascular congestion and mild cardiac enlargement.
[2024-11-10 13:28] LABS: APPEARANCE,URINE CLEAR (CLEAR); BILIRUBIN,URINE NEGATIVE (NEGATIVE); COLOR,URINE LIGHT-YELLOW (YELLOW); GLUCOSE, URINE (UA) 500 mg/dL (NEGATIVE); KETONES,URINE NEGATIVE (NEGATIVE); LEUKOCYTE ESTERASE ,URINE NEGATIVE Leu/uL (NEGATIVE); NITRATE,URINE NEGATIVE (NEGATIVE); PH,URINE 5.5 (5.0-8.0); PROTEIN,URINE 100 mg/dL (NEGATIVE); UROBILINOGEN,URINE 0.2 mg/dL (0.2-1.0)
[2024-11-10 13:32] LABS: ADD UA MICROSCOPIC YES
[2024-11-10 13:36] LABS: BACTERIA,URINE RARE /HPF (None Seen); MUCUS,URINE RARE LPF (None Seen); RBC,URINE 0-1 /HPF (0-1); SQUAMOUS EPITHELIAL CELL,UR RARE /HPF (0-2)
--- NOTE | 2024-11-10 13:41 | NUR ---
PATIENT REPORT GIVEN TO [facility] NURSE. PATIENT TO GO TO ROOM 230
--- NOTE | 2024-11-10 15:48 | NUR ---
DCP: HOME Pt lives in a rental home with his Sheila Huntley [phone]. Pt has provider services 4hrs a day to assist him with ADLS, home management and meal prep thru [employer]. Pt has a cane, walker, w/c, O2, and nebulizer at home. PCP is Ana Lilia Mcadams and uses [facility]. Pt denies need for SNF or referral, wants to dc home. Addendum: 11/10/24 at 1556 by VENICE BROWN SS Amended: Links added.
[2024-11-11] VITALS (13 sets, daily range): BP systolic 108–151; BP diastolic 64–90; PULSE 86–103; RESP 17–18; TEMP 97.9–98.4; O2SAT 97–99
[2024-11-11 03:39] LABS: BASOPHILS # (AUTO) 0.02 K/uL (0.00-0.20); BASOPHILS % (AUTO) 0.1 % (0.0-5.0); HEMATOCRIT 30.9 % (42-54); IMMATURE GRANULOCYTE ABSOLUTE 0.12 K/uL (0-1); LYMPHOCYTES # (AUTO) 1.2 K/uL (1.0-4.8); LYMPHOCYTES % (AUTO) 6.6 % (21.0-51.0); MEAN CORPUSCULAR HEMOGLOBIN 29.4 pg (27.0-33.0); MEAN CORPUSCULAR HGB CONC 32.7 g/dL (32.0-36.0); MEAN CORPUSCULAR VOLUME 89.8 fL (79-99); MONOCYTES # (AUTO) 0.6 K/uL (0.1-1.0); MONOCYTES % (AUTO) 3.1 % (3.0-13.0); NEUTROPHILS # (AUTO) 16.6 K/uL (1.8-7.7); NEUTROPHILS % (AUTO) 89.6 % (40.0-77.0); PLATELET COUNT (AUTO) 397 K/uL (130-400); RED BLOOD CELL COUNT(AUTO) 3.44 MIL/uL (4.50-6.20); RED CELL DISTRIBUTION WIDTH 15.3 % (11.0-15.5); WHITE BLOOD COUNT (AUTO) 18.5 K/uL (4.8-10.8)
[2024-11-11 03:52] LABS: POTASSIUM 3.5 mmol/L (3.5-5.1)
[2024-11-11] MEDS: INSULIN GLARgine 100 UNITS/ML 10 ML VIAL SQ SCH (08:46)
--- NOTE | 2024-11-11 11:45 | PN ---
[facility] PROGRESS NOTE Date of Service: Nov 11, 2024 Time of Service: 11:41 SUBJECTIVE: 11/11 patient seen at bedside, no acute events overnight. He reports his breathing is improved today. We will continue to wean O2 and continue with diuresis. We will repeat chest x-ray tomorrow morning. Urine growing [id number] CFU, not significant. Remainder cultures are still pending, we will continue with empiric antibiotics. Blood sugars are elevated we will start glargine 15 units b.i.d. and adjust. REVIEW OF SYSTEMS 12 point review of systems negative unless noted in HPI PHYSICAL EXAM GENERAL APPEARANCE: The patient is awake, alert, and oriented, in no acute cardiopulmonary distress. NEUROLOGICAL: Cranial nerves II-XII grossly intact. Motor is 5/5 in bilateral upper and lower extremities proximal to distal. No sensory deficits. HEENT: Face is symmetric. Pupils are equal and reactive. Extraocular movements are intact. NECK: Supple. No JVD. No thyromegaly. No submental, submandibular, pre- /postauricular, occipital or supraclavicular lymphadenopathy. CHEST: Normal chest expansion. No Telemetry. LUNGS: Absence of any rales, rhonchi or any wheezing. CARDIOVASCULAR: Regular. S1 and S2 normal. No appreciable rubs, murmurs or gallops. ABDOMEN: Soft, nontender, and nondistended. There is no rebound, voluntary guarding, or rigidity. : Deferred. No Diaz. EXTREMITIES: Non-edematous and not cyanotic. No clubbing. Good capillary refill. SKIN: No skin breakdown. Vital Signs (last 8hr) Date Time Temp Pulse Resp B/P (MAP) Pulse Ox O2 Delivery O2 Flow Rate FiO2 11/11/24 11:36 87 18 N/Cannula Low lpm 2.0 28 11/11/24 09:00 99 Nasal Cannula* 3 32 11/11/24 08:00 98.2 92 17 135/76 99 Nasal Cannula 2.0 11/11/24 07:32 96 18 11/11/24 04:00 98.4 86 18 108/64 97 Nasal Cannula 2.0 LABS: Laboratory: Test 11/11/24 11:10 11/11/24 03:26 11/10/24 13:20 11/10/24 06:13 Range/Units Whole Blood Glucose 441 *H 70-110 MG/DL Bedside Glucose Comment Notified Nurse White Blood Count 18.5 #H 4.8-10.8 K/uL Red Blood Count 3.44 L 4.50-6.20 MIL/uL Hemoglobin 10.1 L 14.0-18.0 g/dL Hematocrit 30.9 L 42-54 % Mean Corpuscular Volume 89.8 79-99 fL Mean Corpuscular Hemoglobin 29.4 27.0-33.0 pg Mean Corpuscular Hemoglobin Concent 32.7 32.0-36.0 g/dL Red Cell Distribution Width 15.3 11.0-15.5 % Platelet Count 397 130-400 K/uL Mean Platelet Volume 9.5 7.5-10.5 fL Immature Granulocyte % (Auto) 0.6 0-1 % Neutrophils (%) (Auto) 89.6 H 40.0-77.0 % Lymphocytes (%) (Auto) 6.6 L 21.0-51.0 % Monocytes (%) (Auto) 3.1 3.0-13.0 % Eosinophils (%) (Auto) 0.0 0.0-8.0 % Basophils (%) (Auto) 0.1 0.0-5.0 % Neutrophils # (Auto) 16.6 H 1.8-7.7 K/uL Lymphocytes # (Auto) 1.2 1.0-4.8 K/uL Monocytes # (Auto) 0.6 0.1-1.0 K/uL Eosinophils # (Auto) 0.00 0.00-0.70 K/uL Basophils # (Auto) 0.02 0.00-0.20 K/uL Absolute Immature Granulocyte (auto 0.12 0-1 K/uL Nucleated Red Blood Cells 0.0 0.0-0.19 % Sodium Level 140 136-145 mmol/L Potassium Level 3.5 3.5-5.1 mmol/L Chloride Level 104 101-111 mmol/L Carbon Dioxide Level 29 21-32 mmol/L Blood Urea Nitrogen 19 H 7-18 mg/dL Creatinine 1.0 0.5-1.3 mg/dL Glomerular Filtration Rate Calc 86 >90 mL/min Random Glucose 238 H 70-105 mg/dL Total Calcium 8.3 L 8.5-10.1 mg/dL B-Type Natriuretic Peptide 2000 H 0-100 pg/mL Urine Color LIGHT-YELLOW YELLOW Urine Appearance CLEAR CLEAR Urine pH 5.5 5.0-8.0 Urine Specific [place] 1.009 1.001-1.031 Urine Protein 100 H NEGATIVE mg/dL Urine Glucose (UA) 500 H NEGATIVE mg/dL Urine Ketones NEGATIVE NEGATIVE mg/dL Urine Occult Blood +- (TRACE) H NEGATIVE Urine Nitrate NEGATIVE NEGATIVE Urine Bilirubin NEGATIVE NEGATIVE mg/dL Urine Urobilinogen 0.2 0.2-1.0 mg/dL Urine Leukocyte Esterase NEGATIVE NEGATIVE Anil/uL Urine RBC 0-1 0-1 /HPF Urine WBC 11-25 H 0-1 /HPF Urine Squamous Epithelial Cells RARE 0-2 /HPF Urine Bacteria RARE None Seen /HPF Urine Hyaline Casts 2-5 H 0-1 /LPF /LPF White Cell Morphology Comment See comments Hemoglobin A1c 6.7 H 4.0-6.0 % Estimated Average Glucose (eAG) 146 H 70-126 mg/dL Phosphorus Level 3.2 2.5-4.9 mg/dL Magnesium Level 1.80 1.80-2.40 mg/dL Test 11/09/24 23:24 11/09/24 23:14 11/09/24 22:54 Range/Units Blood Gas Specimen Type Arterial Arterial Blood pH 7.472 H 7.350-7.450 Arterial Blood Partial Pressure CO2 33 L 35-48 mmHg Arterial Blood Partial Pressure O2 55.0 *L 83.0-108.0 mmHg Arterial Blood HCO3 23.7 21.0-28.0 mmol/L Arterial Blood Oxygen Saturation 90.8 L 94.0-98.0 % Arterial Blood Base Excess 0.8 -2.0-3.0 mmol/L Blood Gas Temperature 37.0 35.5-37.0 CELSIUS Blood Gas Vent Mode RA ROOM AIR FiO2 21.0 % Blood Gas Specimen Comment RR RN Influenza Type A Antigen Negative For Type A NEGATIVE Influenza Type B Antigen Negative For Type B NEGATIVE SARS-CoV-2 Antigen (Rapid) PRESUMPTIVE NEGATIVE NEGATIVE Total Creatine Kinase 201 21-232 U/L Troponin I High Sensitivity 55.3 4-75 ng/L Current Medications Medications (Trade) Dose Ordered Sig/Janeth Route PRN Reason Start Time Stop Time Status Last Admin Dose Admin Albuterol (DUOneb) 1 UDVIAL A3XTARY IH 11/10/24 06:00 12/10/24 05:59 11/11/24 11:39 1 UDVIAL Aspirin (Aspirin 81mg Ec Tab) 81 mg DAILY NG 11/10/24 09:00 12/10/24 08:59 11/11/24 08:47 81 MG Atorvastatin Calcium (LIPItor 40MG) 40 mg DAILY PO 11/10/24 09:00 12/10/24 08:59 11/11/24 08:47 40 MG Clopidogrel Bisulfate (plaVIX 75MG) 75 mg DAILY PO 11/10/24 09:00 12/10/24 08:59 11/11/24 08:47 75 MG Furosemide (LASix 20MG VIAL) 20 mg BID IV 11/10/24 09:00 11/10/24 08:44 DC 11/10/24 08:18 20 MG Furosemide (LASix 40MG VIAL) 40 mg BID IV 11/10/24 09:00 12/10/24 08:59 11/11/24 08:45 40 MG Insulin Glargine (LANtus 100 UNITS/ML 10 ML VIAL) 15 units BID@0730,2100 SQ 11/11/24 07:30 12/11/24 07:29 11/11/24 08:46 15 UNITS Insulin Human Regular (humuLIN R 100 UNIT/ML 3ML) INSULIN SLIDING SCAL... ACHS SQ 11/10/24 07:30 12/10/24 07:29 11/11/24 06:12 7 UNIT Methylprednisolone Sodium Succinate (Solu-medROL 40MG) 40 mg Q8H IVP 11/10/24 07:00 12/10/24 06:59 11/11/24 06:05 40 MG Metoprolol Succinate (TopROL XL) 100 mg DAILY PO 11/10/24 09:00 12/10/24 08:59 11/11/24 08:47 100 MG Miscellaneous Medication (Cilostazol ) 50 mg DAILY PO 11/10/24 09:00 11/10/24 08:47 DC Potassium Chloride 100 ml @ 100 mls/hr AD PRN IV POTASSIUM PROTOCOL 11/10/24 00:30 11/10/24 00:27 DC Potassium Chloride 100 ml @ 100 mls/hr AD PRN IV POTASSIUM PROTOCOL 11/10/24 00:30 12/10/24 00:29 11/10/24 00:16 100 MLS/HR Potassium Chloride (K-Dur/Klor-Con 20meq) 20 meq AD PRN PO POTASSIUM PROTOCOL 11/10/24 00:30 11/10/24 00:27 DC Potassium Chloride (K-Dur/Klor-Con 20meq) 20 meq AD PRN PO POTASSIUM PROTOCOL 11/10/24 00:30 12/10/24 00:29 11/10/24 01:31 20 MEQ Potassium Chloride (KCl 10% Elixir 20meq/15ml) 20 meq AD PRN PO POTASSIUM PROTOCOL 11/10/24 00:30 11/10/24 00:27 DC Potassium Chloride (KCl 10% Elixir 20meq/15ml) 20 meq AD PRN PO POTASSIUM PROTOCOL 11/10/24 00:30 12/10/24 00:29 Sacubitril/ Valsartan (Entresto 97 Mg-103 Mg Tablet) 1 each BID PO 11/10/24 09:00 12/10/24 08:59 11/11/24 08:47 1 EACH Sacubitril/ Valsartan (Entresto 97 Mg-103 Mg Tablet) Take BID BID PO 11/10/24 09:00 11/10/24 08:46 DC DIAGNOSTICS / RADIOLOGY: [ ] ASSESSMENT: Acute on chronic systolic heart failure exacerbation with LVEF 30-35% by 2D echo on 09/18/2024, POA Acute hypoxemic respiratory failure, POA Hypokalemia, POA Uncontrolled diabetes mellitus type 2., POA COPD Hypertension Hyperlipidemia PLAN: Continue diuresis with furosemide 40 mg twice daily Continue supplemental oxygen, we will wean as able Continue sliding scale insulin Start glargine 15 units twice daily Start cefepime Continue IV Solu-Medrol 40 mg Q 8 hours Continue Entresto b.i.d. Continue furosemide 40 mg IV b.i.d. Continue metoprolol 100 mg Q 24 hours Continue Plavix 75 mg Q 24 hours Continue atorvastatin 40 mg HS Continue aspirin 81 mg Q 24 hours Continue hypoglycemia protocol Strict I's and O's Fluid restriction 1500 cc per day Repeat chest x-ray tomorrow morning. Repeat BNP tomorrow Disposition: Pending improvement in respiratory status PAULY STEWART MD Nov 11, 2024 11:45
[2024-11-11] MEDS: ceFEPime HCL 2 GM VIAL IVPB SCH (12:20)
[2024-11-11] MEDS: INSULIN humuLIN R 100 UNIT/ML 3ML SQ SCH (16:48)
[2024-11-12] VITALS (8 sets, daily range): BP systolic 116–144; BP diastolic 63–81; PULSE 80–95; RESP 16–18; TEMP 97.8–98.3; O2SAT 97–98
[2024-11-12] MEDS ORDERED: FURO20TA6 PO (11:41)
[2024-11-12] MEDS ORDERED: AMPI500C12 PO (11:41)
--- NOTE | 2024-11-12 11:52 | HMCIMG ---
CHEST 1VW HISTORY: CHF COMPARISON: 11/09/2024 FINDINGS: A frontal projection of the chest was obtained. Mild bilateral pulmonary infiltrates are seen may be related to mild pulmonary vascular congestion with possible superimposed pneumonitis. Poststernotomy changes are seen. The heart is enlarged. Degenerative changes of the thoracolumbar spine are present. No evidence of aortic calcification is seen. IMPRESSION: 1. Mild bilateral pulmonary infiltrates are seen may be related to mild pulmonary vascular congestion with possible superimposed pneumonitis.
--- NOTE | 2024-11-12 13:50 | DS ---
Discharge Summary Hospital Course Summary: 59-year-old male that was seen and examined on 11/10/2024. Patient states that he came to the emergency department with a chief complaint of shortness a breath. Onset was two days previously. Locations to lungs. Duration is on and off. Character is described as, quotation difficulty catching breath. Symptoms are aggravated with physical activity laying supine. Symptoms are alleviated with rest. Patient reports associated bilateral lower extremity pitting edema because his doctor decreased his water pills. Chest x-ray showed pulmonary vasc ular congestion, BNP was elevated at 1999, patient was admitted and started on diuresis. Patient reported that he had recently had his home Lasix decreased from 20 mg twice daily down to 20 mg once daily, after which he began having worsening shortness of breath. After several days of diuresis patient was back to baseline and his chest x-ray showed improvement in bilateral infiltrates, his orthopnea resolved and he did not have any peripheral pitting edema. He was evaluated as stable and ready for discharge. He will resume his previous dose of 20 mg twice daily of Lasix. Patient will need to follow up with his PCP in 3-7 days and his quality control technician for close monitoring and continued adjustment of his diuretics. Patient has been advised to keep a daily record of his weights and to continue with fluid restrictions with a goal of 1500 cc fluid intake per day. He expressed understanding and was able to explain back my instructions to me. . Procedure(s): CHEST 1VW HISTORY: CHF COMPARISON: 11/09/2024 FINDINGS: A frontal projection of the chest was obtained. Mild bilateral pulmonary infiltrates are seen may be related to mild pulmonary vascular congestion with possible superimposed pneumonitis. Poststernotomy changes are seen. The heart is enlarged. Degenerative changes of the thoracolumbar spine are present. No evidence of aortic calcification is seen. IMPRESSION: 1. Mild bilateral pulmonary infiltrates are seen may be related to mild pulmonary vascular congestion with possible superimposed pneumonitis. PORTABLE CHEST RADIOGRAPH INDICATION: Dyspnea/SOB COMPARISON: 09/29/2024 FINDINGS: quality assurance monitor chassis leads overlie the field of view. Median sternotomy wires as well as fixation plates and screws are in appropriate alignment. Heart is slightly enlarged. Pulmonary vascularity is enlarged. No abnormal pulmonary parenchymal opacity or consolidation identified. No significant pleural effusion noted. No pneumothorax detected. IMPRESSION: Pulmonary vascular congestion and mild cardiac enlargement. Assessment/Plan: Acute on chronic systolic heart failure exacerbation with LVEF 30-35% by 2D echo on 09/18/2024, POA Acute hypoxemic respiratory failure, POA Hypokalemia, POA Uncontrolled diabetes mellitus type 2, last A1C 6.7 POA COPD Hypertension Hyperlipidemia Discharge Instructions: Follow up with PCP in 3-7 days Follow up with quality control technician in 1-2 weeks. Adjust diuretics as needed Home Medications: Active Scripts Ampicillin Trihydrate (Ampicillin Trihydrate) 500 Mg Capsule, 1 CAP PO QID for 7 Days, #28 CAP 0 Refills Prov:PAULY STEWART MD 11/12/24 Furosemide (Lasix 20Mg Tab) 20 Mg Tablet, 20 MG PO Q12H, #60 TAB 0 Refills Prov:PAULY STEWART MD 11/12/24 Metoprolol Succinate (Toprol Xl) 50 Mg Tab.er.24h, 100 MG PO DAILY, #30 TAB 0 Refills Prov:PAULY STEWART MD 10/01/24 Aspirin (ASPIRIN 81 MG ECTAB) 81 Mg Ectab, 81 MG NG DAILY, #30 TAB.EC 0 Refills Prov:PAULY STEWART MD 10/01/24 Reported Medications Insuln Asp Prt/Insulin Aspart (Novolog Mix 70-30 Flexpen Syrn) 100 Unit/Ml (70- 30) Insuln.pen, 25 UNITS SQ BID, SYRINGE 11/10/24 Sacubitril/Valsartan (Entresto 97 mg-103 mg Tablet) 97 Mg-103 Mg Tablet, 1 TAB PO BID for 30 Days, #60 TAB 0 Refills 11/10/24 Budesonide/Glycopyr/Formoterol (Breztri Aerosphere Inhaler) 160 Mcg-9 Mcg-4.8 Mcg/Actuation Hfa.aer.ad, 2 PUFF IH BID for 30 Days, #10.7 GM 0 Refills 09/19/24 Insuln Asp Prt/Insulin Aspart (Novolog Mix 70-30 Flexpen Syrn) Unknown Strength Insuln.pen, SQ AM PRN for OTHER [SEE ORDER COMMENTS] for 30 Days, #1 SYRINGE 1 Refill 09/19/24 Metformin HCl (Metformin HCl) 1,000 Mg Tablet, 1000 MG PO BID, TAB 09/18/24 Clopidogrel Bisulfate (Plavix) 75 Mg Tablet, 75 MG PO DAILY, TAB 09/18/24 Atorvastatin Calcium (LIPITOR) 40 Mg Tablet, 40 MG PO DAILY, TAB 09/18/24 Empagliflozin (Jardiance) 25 Mg Tablet, 25 MG PO DAILY, TAB 09/18/24 Cilostazol (Cilostazol) 50 Mg Tablet, 50 MG PO DAILY, TAB 09/18/24 Discontinued Reported Medications Olmesartan Medoxomil (Olmesartan Medoxomil) 40 Mg Tablet, 40 MG PO DAILY, TAB 09/18/24 Amlodipine Besylate (Norvasc) 10 Mg Tablet, 10 MG PO DAILYDINNER, TAB 09/18/24 Discontinued Scripts Cephalexin Monohydrate (Keflex) 500 Mg Cap, 500 MG PO BID for 7 Days, #14 CAP Prov:TERENCE CRUMP MD 10/20/24 New Medications: Ampicillin Trihydrate (Ampicillin Trihydrate) 500 Mg Capsule 1 CAP PO QID for 7 Days, #28 CAP 0 Refills Continued Medications: Aspirin (Aspirin 81 Mg Ectab) 81 Mg Ectab 81 MG NG DAILY, #30 TAB.EC 0 Refills Atorvastatin Calcium (Lipitor) 40 Mg Tablet 40 MG PO DAILY, TAB Budesonide/Glycopyr/Formoterol (Breztri Aerosphere Inhaler) 160 Mcg-9 Mcg-4.8 Mcg/Actuation Hfa.aer.ad 2 PUFF IH BID for 30 Days, #10.7 GM 0 Refills Cilostazol (Cilostazol) 50 Mg Tablet 50 MG PO DAILY, TAB Clopidogrel Bisulfate (Plavix) 75 Mg Tablet 75 MG PO DAILY, TAB Empagliflozin (Jardiance) 25 Mg Tablet 25 MG PO DAILY, TAB Furosemide (Lasix 20Mg Tab) 20 Mg Tablet 20 MG PO Q12H, #60 TAB 0 Refills (This prescription has been renewed) Insuln Asp Prt/Insulin Aspart (Novolog Mix 70-30 Flexpen Syrn) Unknown Strength Insuln.pen Unknown Dose SQ AM PRN for OTHER [SEE ORDER COMMENTS] for 30 Days, #1 SYRINGE 1 Refill Insuln Asp Prt/Insulin Aspart (Novolog Mix 70-30 Flexpen Syrn) 100 Unit/Ml (70- 30) Insuln.pen 25 UNITS SQ BID, SYRINGE Metformin HCl (Metformin HCl) 1,000 Mg Tablet 1000 MG PO BID, TAB Metoprolol Succinate (Toprol Xl) 50 Mg Tab.er.24h 100 MG PO DAILY, #30 TAB 0 Refills Sacubitril/Valsartan (Entresto 97 mg-103 mg Tablet) 97 Mg-103 Mg Tablet 1 TAB PO BID for 30 Days, #60 TAB 0 Refills Discontinued Medications: Amlodipine Besylate (Norvasc) 10 Mg Tablet 10 MG PO DAILYDINNER, TAB Cephalexin Monohydrate (Keflex) 500 Mg Cap 500 MG PO BID for 7 Days, #14 CAP Olmesartan Medoxomil (Olmesartan Medoxomil) 40 Mg Tablet 40 MG PO DAILY, TAB Time spent arranging discharge: 31-60 minutes PAULY STEWART MD Nov 12, 2024 13:50
--- NOTE | 2024-11-12 14:17 | NUR ---
NOTE DISCHARGE INSTRUCTIONS GIVEN TO PATIENT AND FAMILY. ALL STATED UNDERSTANDING. ALL QUESTIONS ANSWERED.
== END 2024-11-12 14:20 | disposition home or self-care (01) | DRG 194 ==
LOC: EDH 22:43 → EDHIP 22:44 → 2AH 11-10 14:30
PROVIDERS: ADMIT Internal Medicine; ATTEND Internal Medicine
DX: I11.0 Hypertensive heart disease with heart failure (principal); J96.01 Acute respiratory failure with hypoxia; I50.23 Acute on chronic systolic (congestive) heart failure; J44.9 Chronic obstructive pulmonary disease, unspecified; F17.210 Nicotine dependence, cigarettes, uncomplicated; Z66 Do not resuscitate; Z20.822 Contact with and (suspected) exposure to COVID-19; E87.6 Hypokalemia; E78.00 Pure hypercholesterolemia, unspecified; E78.5 Hyperlipidemia, unspecified; I25.10 Atherosclerotic heart disease of native coronary artery without angina pectoris; Z95.1 Presence of aortocoronary bypass graft; Z80.3 Family history of malignant neoplasm of breast; Z99.2 Dependence on renal dialysis; Z79.4 Long term (current) use of insulin; Z79.51 Long term (current) use of inhaled steroids; Z79.82 Long term (current) use of aspirin; Z82.49 Family history of ischemic heart disease and other diseases of the circulatory system; Z79.899 Other long term (current) drug therapy
CPT/HCPCS: 36415; 36600; 71045; 80048; 81001; 82550; 82803; 82948; 83036; 83735; 83880; 84100; 84484; 85025; 87086; 87186; 87426; 87804; 93005; 94640; 94664; 96374; 96375; 99291; G0378; J0692; J1815; J1940; J2919; J3480

== ENCOUNTER 2024-11-26 08:19 | Emergency (ER) | payer MEDICAID ==
[~2024-11-26] VITALS: Ht 162.6 cm; Wt 76.2 kg
[~2024-11-26 08:19] MED LIST changes: -AMLO10TA4 PO; +AMPI500C12 PO; -CEPH500B PO; -OLME40TA18 PO; +SACU1TAB4 PO
--- NOTE | 2024-11-26 08:57 | ERN ---
ED Note History of Present Illness Stated Complaint: COUGH Chief Complaint: Congestion Time Seen by MD: 08:35 Dictation: The patient is a 59-year-old male with a past medical history of hypercholesterolemia, type 2 diabetes mellitus, acute on chronic CHF EF 30 35% 09/2024, on continuous home oxygen 3 L, recent hospitalization for CHF exacerbation on 11/12/2024, history of STEMI s/p CABG in October 08, 2024, peripheral vascular disease, presented to emergency department with a complaint of shortness of breath since past 2 days. The patient also experiences cough with white phlegm, along with some chest pressure but denies any hemoptysis, fever, chills, body aches, dizziness or lightheadedness. He also reports of bilateral lower extremity pitting edema since the CABG surgery. He has an appointment scheduled with a woodworking craftsman this upcoming Friday. The patient did home COVID testing which returned negative. The patient does not report any diaphoresis, chest pain, nausea, vomiting. Allergies: Coded Allergies: No Known Drug Allergies (Unverified Allergy, Unknown, 09/18/24) Home Meds Active Scripts Potassium Chloride (Potassium Chloride) 20 Meq Packet, 1 PACKET PO BID for 14 Days, #28 PACKET 0 Refills Prov:ESSIE MONAHAN MD 11/26/24 Ampicillin Trihydrate (Ampicillin Trihydrate) 500 Mg Capsule, 1 CAP PO QID for 7 Days, #28 CAP 0 Refills Prov:PAULY STEWART MD 11/12/24 Furosemide (Lasix 20Mg Tab) 20 Mg Tablet, 20 MG PO Q12H, #60 TAB 0 Refills Prov:PAULY STEWART MD 11/12/24 Metoprolol Succinate (Toprol Xl) 50 Mg Tab.er.24h, 100 MG PO DAILY, #30 TAB 0 Refills Prov:PAULY STEWART MD 10/01/24 Aspirin (ASPIRIN 81 MG ECTAB) 81 Mg Ectab, 81 MG NG DAILY, #30 TAB.EC 0 Refills Prov:PAULY STEWART MD 10/01/24 Reported Medications Insuln Asp Prt/Insulin Aspart (Novolog Mix 70-30 Flexpen Syrn) 100 Unit/Ml (70- 30) Insuln.pen, 25 UNITS SQ BID, SYRINGE 11/10/24 Sacubitril/Valsartan (Entresto 97 mg-103 mg Tablet) 97 Mg-103 Mg Tablet, 1 TAB PO BID for 30 Days, #60 TAB 0 Refills 11/10/24 Budesonide/Glycopyr/Formoterol (Breztri Aerosphere Inhaler) 160 Mcg-9 Mcg-4.8 Mcg/Actuation Hfa.aer.ad, 2 PUFF IH BID for 30 Days, #10.7 GM 0 Refills 09/19/24 Insuln Asp Prt/Insulin Aspart (Novolog Mix 70-30 Flexpen Syrn) Unknown Strength Insuln.pen, SQ AM PRN for OTHER [SEE ORDER COMMENTS] for 30 Days, #1 SYRINGE 1 Refill 09/19/24 Metformin HCl (Metformin HCl) 1,000 Mg Tablet, 1000 MG PO BID, TAB 09/18/24 Clopidogrel Bisulfate (Plavix) 75 Mg Tablet, 75 MG PO DAILY, TAB 09/18/24 Atorvastatin Calcium (LIPITOR) 40 Mg Tablet, 40 MG PO DAILY, TAB 09/18/24 Empagliflozin (Jardiance) 25 Mg Tablet, 25 MG PO DAILY, TAB 09/18/24 Cilostazol (Cilostazol) 50 Mg Tablet, 50 MG PO DAILY, TAB 09/18/24 Past Medical History Past Medical History: CAD, COPD, Diabetes-Type II, High Cholesterol, Hypertension Surgical History: None Review of System Dictation REVIEW OF SYSTEMS CONSTITUTIONAL: Denies fevers, chills, or night sweats. No unintentional weight loss reported. NEUROLOGICAL: Denies headache, amaurosis fugax, motor weakness, sensory deficit, vertigo/spinning sensation, gait abnormalities, or tremors. ENT: No hearing loss, otalgia, otorrhea, rhinitis, rhinorrhea, hoarseness, or sore throat. CARDIOVASCULAR: Denies any exertional angina, dyspnea on exertion, orthopnea, paroxysmal nocturnal dyspnea, palpitations, life-threatening arrhythmias, claudication. PULMONARY: Complaints of shortness of breath, cough, no phlegm/sputum, hem optysis, pleuritic chest pain. SLEEP: Denies morning headaches, daytime somnolence or napping. Denies dif ficulty falling asleep, staying asleep, waking from sleep. Denies knowledge of snoring. GASTROINTESTINAL: Denies any type of dysphagia to either liquids or solids. Denies nausea, vomiting, pyrosis, early satiety, abdominal pain, diarrhea, constipation, or changes in stool consistency or caliber. Denies coffee-ground emesis, hematemesis, hematochezia, or melanotic stools. GENITOURINARY: Denies frequency, urgency, nocturia, hematuria or incontinence (Storage/Irritative symptoms.) Low urinary stream, straining to void, urinary intermittency or hesitancy, splitting of the voiding stream, terminal dribbling. ENDOCRINOLOGIC: Denies polyuria, polydipsia, polyphagia or heat/cold intolerances. HEMATOLOGIC: Denies thrombophilia/previous clots, or coagulopathy/bleeding disorders. ONCOLOGIC: Denies personal history of malignancy. DERMATOLOGIC: Denies rashes or pruritus. PSYCHIATRIC: Denies any suicidal or homicidal ideation. Denies hallucinations. Initial Vital Sign VS Vital Signs Date Time Temp Pulse Resp B/P (MAP) Pulse Ox O2 Delivery O2 Flow Rate FiO2 11/26/24 08:21 98.1 80 18 150/74 98 Room Air 11/26/24 11:15 2 28 Physical Exam Dictation PHYSICAL EXAM GENERAL APPEARANCE: The patient is awake, alert, and oriented, in no acute cardiopulmonary distress. NEUROLOGICAL: Cranial nerves II-XII grossly intact. Motor is 5/5 in bilateral upper and lower extremities proximal to distal. No sensory deficits. HEENT: Face is symmetric. Pupils are equal and reactive. Extraocular movements are intact. NECK: Supple. No JVD. No thyromegaly. No submental, submandibular, pre- /postauricular, occipital or supraclavicular lymphadenopathy. CHEST: Normal chest expansion. No Telemetry. LUNGS: Absence of any rales, rhonchi or any wheezing. CARDIOVASCULAR: Regular. S1 and S2 normal. No appreciable rubs, murmurs or gallops. ABDOMEN: Soft, nontender, and nondistended. There is no rebound, voluntary guarding, or rigidity. : Deferred. No Diaz. EXTREMITIES: 1+ bilateral pitting edema, not cyanotic. No clubbing. Good capillary refill. SKIN: No skin breakdown. Results (Laboratory/Radiology) Laboratory/Radiology Laboratory Tests Test 11/26/24 08:25 11/26/24 08:56 11/26/24 11:11 11/26/24 11:55 Influenza Type A Antigen Negative For Type A Influenza Type B Antigen Negative For Type B SARS-CoV-2 Antigen (Rapid) PRESUMPTIVE NEGATIVE Group A Streptococcus Rapid negative (NEGATIVE) White Blood Count 13.9 K/uL (4.8-10.8) H Red Blood Count 3.95 MIL/uL (4.50-6.20) L Hemoglobin 11.5 g/dL (14.0-18.0) L Hematocrit 35.1 % (42-54) L Mean Corpuscular Volume 88.9 fL (79-99) Mean Corpuscular Hemoglobin 29.1 pg (27.0-33.0) Mean Corpuscular Hemoglobin Concent 32.8 g/dL (32.0-36.0) Red Cell Distribution Width 14.7 % (11.0-15.5) Platelet Count 320 K/uL (130-400) Mean Platelet Volume 9.7 fL (7.5-10.5) Immature Granulocyte % (Auto) 0.4 % (0-1) Neutrophils (%) (Auto) 76.9 % (40.0-77.0) Lymphocytes (%) (Auto) 14.6 % (21.0-51.0) L Monocytes (%) (Auto) 6.4 % (3.0-13.0) Eosinophils (%) (Auto) 1.1 % (0.0-8.0) Basophils (%) (Auto) 0.6 % (0.0-5.0) Neutrophils # (Auto) 10.7 K/uL (1.8-7.7) H Lymphocytes # (Auto) 2.0 K/uL (1.0-4.8) Monocytes # (Auto) 0.9 K/uL (0.1-1.0) Eosinophils # (Auto) 0.15 K/uL (0.00-0.70) Basophils # (Auto) 0.08 K/uL (0.00-0.20) Absolute Immature Granulocyte (auto 0.05 K/uL (0-1) Nucleated Red Blood Cells 0.0 % (0.0-0.19) Sodium Level 146 mmol/L (136-145) H Potassium Level 3.0 mmol/L (3.5-5.1) *L 3.0 mmol/L (3.5-5.1) *L Chloride Level 106 mmol/L (101-111) Carbon Dioxide Level 34 mmol/L (21-32) H Blood Urea Nitrogen 9 mg/dL (7-18) Creatinine 0.8 mg/dL (0.5-1.3) Glomerular Filtration Rate Calc 101 mL/min (>90) Random Glucose 181 mg/dL (70-105) H Total Calcium 8.9 mg/dL (8.5-10.1) Troponin I High Sensitivity 60 ng/L (4-75) B-Type Natriuretic Peptide 1570 pg/mL (0-100) H Urine Color LIGHT-YELLOW (YELLOW) Urine Appearance CLEAR (CLEAR) Urine pH 7.0 (5.0-8.0) Urine Specific [place] 1.010 (1.001-1.031) Urine Protein 100 mg/dL (NEGATIVE) H Urine Glucose (UA) NEGATIVE mg/dL (NEGATIVE) Urine Ketones NEGATIVE mg/dL (NEGATIVE) Urine Occult Blood +- (TRACE) (NEGATIVE) H Urine Nitrate NEGATIVE (NEGATIVE) Urine Bilirubin NEGATIVE mg/dL (NEGATIVE) Urine Urobilinogen 0.2 mg/dL (0.2-1.0) Urine Leukocyte Esterase NEGATIVE Anil/uL Urine RBC 6-10 /HPF (0-1) H Urine WBC 0-1 /HPF (0-1) Urine Squamous Epithelial Cells RARE /HPF (0-2) Urine Bacteria RARE /HPF (None Seen) ED Course ED Course Orders Procedure Category Date Status Time Covid19 (Sars Antigen LAB 11/26/24 Complete Rapid) 08:25 Influenza Type A & B, LAB 11/26/24 Complete Rapid 08:25 Rapid (Group A Strep) LAB 11/26/24 Complete 08:25 Cbc With Differential LAB 11/26/24 Complete 08:47 Basic Metabolic Panel LAB 11/26/24 Complete 08:47 B-Type Natriuretic LAB 11/26/24 Complete Peptide 08:47 Troponin I High LAB 11/26/24 Complete Sensitivity 08:47 12 Lead Ekg Tracing- EKG 11/26/24 Complete Technical 08:47 Chest 1vw RAD 11/26/24 Resulted 08:47 Urinalysis Profile LAB 11/26/24 Complete 08:47 Potassium Chloride PHA 11/26/24 Complete 20meq Er (K-Dur/Klor- 09:30 Furosemide 40mg Vial PHA 11/26/24 Complete (Lasix 40mg Vial) 09:40 Potassium LAB 11/26/24 Complete 12:00 Ceftriaxone 1g Vial PHA 11/26/24 Complete (Rocephine 1g Inj) 10:30 Current Medications Medications (Trade) Dose Ordered Sig/Janeth Route PRN Reason Start Time Stop Time Status Last Admin Dose Admin Ceftriaxone Sodium (ROCEphine 1G INJ) 1 gm ONCE ONCE IVPB 11/26/24 10:30 11/26/24 10:31 DC 11/26/24 11:04 Furosemide (LASix 40MG VIAL) 40 mg ONCE ONCE IV 11/26/24 09:40 11/26/24 09:41 DC 11/26/24 11:04 Potassium Chloride (K-Dur/Klor-Con 20meq) 40 meq ONCE ONCE PO 11/26/24 09:30 11/26/24 09:31 DC 11/26/24 09:36 Vital Signs Date Time Temp Pulse Resp B/P (MAP) Pulse Ox O2 Delivery O2 Flow Rate FiO2 11/26/24 13:11 98.1 75 15 135/69 99 Nasal Cannula* 2 28 11/26/24 11:15 98.1 76 13 138/73 99 Nasal Cannula* 2 28 11/26/24 08:21 98.1 80 18 150/74 98 Room Air 09:00 the patient was examined in ED room 11. He appears in somewhat cardiopulmonary distress. He is able to provide the detailed history of current medical condition. He is afebrile, blood pressure 150/74, otherwise nonsignificant. He exhibits 1+ bilateral pitting edema. At this time, we will order basic labs including CBC, CMP, troponin, BNP. We will also order chest x- ray to rule out any pulmonary edema. We will also provide diuresis by furosemide 40 mg IV once the labs and radiology investigations are back, we will evaluate if the patient requires any emergency treatment or inpatient hospitalization. We will continue close monitoring the patient. 10:30: Labs showed WBC 13.9, sodium 146, potassium 3.0, BNP 1570. We will give a potassium and repeat after 3 hours. Chest x-ray showed some pulmonary congestion. The patient appears comfortable on 3 L of nasal cannula. 12:30: After diuresis, the patient appears comfortable in the was able to ambulate on his own without any shortness of breath. He is hemodynamically stable. We will increase the dose of furosemide from 20 mg to 40 mg b.i.d. and also recommend taking potassium chloride daily for 14 days. At this point, the patient does not require an inpatient hospitalization or emergency intervention. Patient agrees with the plan, He can be safely discharged home Medical Decision Making MDM MDM Differential diagnosis: Acute on chronic CHF exacerbation with reduced ejection fraction 30-35%, volume overload, shortness of breath, hypokalemia Rationale: Tests considered and ordered secondary to shared decision making include: Previous outside records reviewed: Old ER visits. Risk of complication and/or morbidity or mortality of patient management: None Medications-Per medication reconciliation Need for hospitalization: Patient does not meet criteria for hospitalization. Need for emergency major/minor surgery: No There are no social concerns with this patient. Prescription drug management Prescriptions will include symptomatic care Patient's prior external medical records from other ER visits were reviewed by me as indicated. Prior testing and results from previous visits were reviewed. Prior tests were taken into account with medical decision making and resource utilization, independent historian/historians were used to obtain complete medical history. I independently interpreted the test that were performed, results were reviewed by me and considered findings on radiology if ordered. DX & DISP Disposition: Discharge Departure Impression: Primary Impression: Acute exacerbation of congestive heart failure Additional Impressions: Elevated brain natriuretic peptide (BNP) level, Volume overload, Hypokalemia Condition: Stable Scripts Potassium Chloride (Potassium Chloride) 20 Meq Packet 1 PACKET PO BID for 14 Days, #28 PACKET 0 Refills Prov: ESSIE MONAHAN MD 11/26/24 Additional Instructions: Furosemide dose was increased to 40 mg b.i.d. secondary to volume overload Start taking potassium chloride 20 mEq b.i.d. for 14 days to prevent hypokalemia. Continue home oxygen at 3.0 L Take medications as prescribed. Follow up with the woodworking craftsman within 7 days of the discharge for further management of CHF exacerbation and volume overload. Visit the nearest emergency department or call 911 should the symptoms return or get worse Referrals: DAVID BURDICK MD (PCP) I have reviewed, & agreed with my scribe's, documentation. I have reviewed the case, and I agree with, Diagnosis and Plan I have examined patient, & reviewed all documents, & agreed W/ the Diagnosis, and Plan ESSIE MONAHAN MD Nov 26, 2024 08:57
[2024-11-26 09:18] LABS: RAPID GROUP A STREP negative (NEGATIVE)
[2024-11-26 09:20] LABS: CREATININE 0.8 mg/dL (0.5-1.3)
--- NOTE | 2024-11-26 09:25 | NUR ---
K-3.0 KONG MADE AWARE
[2024-11-26 09:28] LABS: COVID19 (SARS ANTIGEN RAPID) PRESUMPTIVE NEGATIVE (NEGATIVE); INFLUENZA TYPE A Negative For Type A (NEGATIVE); INFLUENZA TYPE B Negative For Type B (NEGATIVE)
[2024-11-26 09:36] LABS: B-TYPE NATRIURETIC PEPTIDE 1570 pg/mL (0-100)
[2024-11-26] MEDS: PoTASSium chloRIDE 20MEQ ER 20 MEQ ERTAB PO ONE (09:36)
[2024-11-26 09:39] LABS: BASOPHILS # (AUTO) 0.08 K/uL (0.00-0.20); BASOPHILS % (AUTO) 0.6 % (0.0-5.0); EOSINOPHILS # (AUTO) 0.15 K/uL (0.00-0.70); EOSINOPHILS % (AUTO) 1.1 % (0.0-8.0); HEMATOCRIT 35.1 % (42-54); IMMATURE GRANULOCYTE ABSOLUTE 0.05 K/uL (0-1); LYMPHOCYTES % (AUTO) 14.6 % (21.0-51.0); MEAN CORPUSCULAR HEMOGLOBIN 29.1 pg (27.0-33.0); MEAN CORPUSCULAR HGB CONC 32.8 g/dL (32.0-36.0); MEAN CORPUSCULAR VOLUME 88.9 fL (79-99); MONOCYTES # (AUTO) 0.9 K/uL (0.1-1.0); MONOCYTES % (AUTO) 6.4 % (3.0-13.0); NEUTROPHILS # (AUTO) 10.7 K/uL (1.8-7.7); NEUTROPHILS % (AUTO) 76.9 % (40.0-77.0); PLATELET COUNT (AUTO) 320 K/uL (130-400); RED BLOOD CELL COUNT(AUTO) 3.95 MIL/uL (4.50-6.20); RED CELL DISTRIBUTION WIDTH 14.7 % (11.0-15.5); WHITE BLOOD COUNT (AUTO) 13.9 K/uL (4.8-10.8)
--- NOTE | 2024-11-26 09:45 | EKG ---
[facility] Test Date: 2024-11-26 Test Time: 08:49:56 Pat Name: KATHERYN ROONEY Department: [facility] Room: Gender: M Cnc Applications Engineer: [id number] : [id number] Requested By: ESSIE MONAHAN Order Number: [id number] Reading MD: Julio David Measurements Intervals [place] Rate: 76 P: 71 NM: 165 QRS: 54 QRSD: 147 T: 73 QT: 493 QTc: 555 Interpretive Statements Sinus rhythm Probable left atrial enlargement Right bundle branch block Compared to ECG 11/09/2024 23:12:38 Atrial premature complex(es) no longer present Myocardial infarct finding no longer present Electronically Signed On 11-26-2024 17:40:09 LAMP MECHANIC by Julio David Please click the below link to view image of tracing.
--- NOTE | 2024-11-26 09:49 | HMCIMG ---
Exam Type: CHEST 1VW Clinical Information: H/o CHF, Acute shortness of breath Comparison: None Findings: Pulmonary pattern is as before. No worrisome interval changes have taken place. Impression: Stable exam.
[2024-11-26] MEDS: furoSEMIDE 40MG VIAL IV ONE (11:04)
[2024-11-26] MEDS: cefTRIAXone 1G VIAL IVPB ONE (11:04)
[2024-11-26 11:30] LABS: APPEARANCE,URINE CLEAR (CLEAR); BILIRUBIN,URINE NEGATIVE (NEGATIVE); COLOR,URINE LIGHT-YELLOW (YELLOW); GLUCOSE, URINE (UA) NEGATIVE (NEGATIVE); KETONES,URINE NEGATIVE (NEGATIVE); LEUKOCYTE ESTERASE ,URINE NEGATIVE Leu/uL (NEGATIVE); NITRATE,URINE NEGATIVE (NEGATIVE); PROTEIN,URINE 100 mg/dL (NEGATIVE); UROBILINOGEN,URINE 0.2 mg/dL (0.2-1.0)
[2024-11-26 11:33] LABS: ADD UA MICROSCOPIC YES
[2024-11-26 11:34] LABS: BACTERIA,URINE RARE /HPF (None Seen); SQUAMOUS EPITHELIAL CELL,UR RARE /HPF (0-2); WBC,URINE 0-1 /HPF (0-1)
--- NOTE | 2024-11-26 12:25 | NUR ---
K-3.0 KONG MADE AWARE
[2024-11-26] MEDS ORDERED: POTA20PA32 PO (12:41)
[2024-11-26 13:11] VITALS: BP 135/69; PULSE 75; RESP 15; TEMP 98; O2SAT 99
== END 2024-11-26 12:55 | disposition home or self-care (01) ==
LOC: EDH 08:19
DX: I11.0 Hypertensive heart disease with heart failure (principal); I50.9 Heart failure, unspecified; R79.89 Other specified abnormal findings of blood chemistry; E87.70 Fluid overload, unspecified; E87.6 Hypokalemia; I21.9 Acute myocardial infarction, unspecified; I25.10 Atherosclerotic heart disease of native coronary artery without angina pectoris; E11.9 Type 2 diabetes mellitus without complications; E78.00 Pure hypercholesterolemia, unspecified; J44.9 Chronic obstructive pulmonary disease, unspecified; Z20.822 Contact with and (suspected) exposure to COVID-19; Z79.02 Long term (current) use of antithrombotics/antiplatelets; Z79.4 Long term (current) use of insulin; Z79.82 Long term (current) use of aspirin; Z79.84 Long term (current) use of oral hypoglycemic drugs; Z79.899 Other long term (current) drug therapy
CPT/HCPCS: 99285; 96374; 71045; 96375; 87426; 84484; 84132; 80048; 83880; 85025; 87880; 87804 ×2; 81001; 36415; 93005; J0696; J1940

== ENCOUNTER → 2024-12-01 | Outpatient (CLI) | payer MEDICAID ==
[~2024-12-01] MED LIST changes: +POTA20PA32 PO
[2024-12-01 12:30] LABS: CREATININE 0.8 mg/dL (0.5-1.3)
== END | disposition home or self-care (01) ==
LOC: LAB 09:13
PROVIDERS: ATTEND Internal Medicine
DX: I10 Essential (primary) hypertension (principal)
CPT/HCPCS: 36415; 80048; 83880